=== PATIENT | male | born 2005 | race Caucasian/White ===

== ENCOUNTER 2024-03-28 11:14 | Outpatient (AMB) | payer OTHER, SELFPAY ==
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
[2024-03-28 11:30] VITALS: BP 135/83; PULSE 83; RESP 14; O2SAT 100; BMI 21.0
[2024-03-28 12:39] VITALS: BP 122/70
== END 2024-03-28 12:48 | disposition home or self-care (01) ==
LOC: HO.HMCFM 11:14
PROVIDERS: PCP Nurse Practitioner Family; Visit Provider Physician Assistant Medical
DX: R45.851 Suicidal ideations (principal); F43.10 Post-traumatic stress disorder, unspecified; F41.9 Anxiety disorder, unspecified; F32.A Depression, unspecified

== ENCOUNTER → 2024-03-28 11:14 | Outpatient (BNVA) | payer OTHER, SELFPAY | PROVIDERS: PCP Nurse Practitioner Family; Visit Provider Physician Assistant Medical | DX: F43.10 Post-traumatic stress disorder, unspecified (principal); F41.9 Anxiety disorder, unspecified; F32.A Depression, unspecified; R45.851 Suicidal ideations; Z71.89 Other specified counseling | CPT/HCPCS: 96127; 99202 ==

== ENCOUNTER 2024-04-02 08:23 | Outpatient (REF) | payer OTHER, SELFPAY ==
[2024-04-02 11:23] LABS: Mean Corpuscular HGB Conc 33.3 g/dl (31.0-36.0); Mean Corpuscular Hemoglobin 29.7 pg (27.0-33.0); Mean Corpuscular Volume 89.1 fL (80.0-98.0); Mean Platelet Volume 10.7 fL (9.4-12.4); Platelet Count 263 X10*3/uL (160-400); Red Blood Count 5.05 X10*6/uL (4.60-5.80); Red Cell Distribution Width 12.7 % (11.0-16.0); White Blood Count 8.5 X10*3/uL (4.8-10.8)
[2024-04-02 11:55] LABS: Alanine Aminotransferase 20 U/L (0-40); Albumin Level 4.7 g/dL (3.5-5.0); Alkaline Phosphatase 107 U/L (39-117); Anion Gap 13 (12-20); Aspartate Amino Transferase 23 U/L (5-37); Bilirubin Total 0.7 mg/dL (0.0-1.0); Blood Urea Nitrogen 11 mg/dL (9-16); Calcium 9.7 mg/dL (8.4-10.2); Carbon Dioxide 27 mmol/L (22-29); Chloride 105 mmol/L (96-108); Cholesterol 158 mg/dL (<200); Estimated Glomerular Filt Rate > 60; Glucose Random 90 mg/dL (60-115); HDL Cholesterol 39 mg/dL (>40); LDL Cholesterol Calculated 103 mg/dL (<100); Potassium 4.2 mmol/L (3.3-5.1); Sodium 141 mmol/L (135-145); Total Protein 8.2 g/dL (6.5-8.0); Triglycerides 81 mg/dL (<150)
[2024-04-02 12:03] LABS: HIV AB/AG Nonreactive (Nonreactive); HIV Num 1 0.06 S/CO (0.00-0.99); ~HepC Num1 0.28 S/CO (0.00-0.79); ~Hepatitis C Antibody Nonreactive (Nonreactive)
[2024-04-02 12:12] LABS: TSH reflex Free T4 2.04 uIU/mL (0.32-4.0)
[2024-04-02 12:22] LABS: Syphilis Screen Reactive (Nonreactive)
[2024-04-08 15:46] LABS: RPR Quantitative Non-Reactive (Nonreactive); T.Pallidum Particle Agg Test Reactive (Nonreactive)
== END 2024-04-02 08:24 | disposition home or self-care (01) ==
LOC: HO.WFDLDS 08:23
PROVIDERS: Visit Provider Physician Assistant Medical
DX: F41.9 Anxiety disorder, unspecified (principal); E78.5 Hyperlipidemia, unspecified; F32.A Depression, unspecified; Z13.6 Encounter for screening for cardiovascular disorders; Z11.3 Encounter for screening for infections with a predominantly sexual mode of transmission
CPT/HCPCS: 36415; 80053; 80061; 84443; 85027; 86592; 86780; 86803; 87389

== ENCOUNTER 2024-04-11 15:58 | Outpatient (AMB) | payer OTHER, SELFPAY ==
--- NOTE | 2024-04-11 15:54 | MHC.PC.OV ---
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 The patient has a working phone number again. I gave him the contact number for central scheduling. They were trying to reach him to set up appointments for Psychology and Psychiatry. We reviewed his lab results. They were satisfactory. Screening for STIs demonstrated reactive T pallidum antibody, nonreactive RPR and reactive T pallidum particle agg in keeping with prior syphilis infection treated in early 2023. Patient had no questions about his labs today. [facility] Medical History (Updated 04/11/24 @ 16:13 by NALLELY Rojo) History of syphilis Suicidal ideation PTSD (post-traumatic stress disorder) Screening for cardiovascular condition Vaso vagal episode ADHD Bipolar 1 disorder Anxiety and depression Surgical History (Updated 03/28/24 @ 11:29 by Gloria Eastman MA) No pertinent past surgical history Family History (Updated 03/28/24 @ 12:20 by NALLELY Rojo) Father Mental health disorder Hypertension Maternal Grandfather Hypertension Paternal Grandmother Diabetes Breast cancer Paternal Grandfather Diabetes Mother Hector's disease Social History (Updated 03/28/24 @ 11:26 by Gloria Eastman MA) Household Members: Family Both parents involved: Yes Caregiver staying overnight: No Housing: House Are you a primary customer care associate to a significant other at home: No Do you presently have visiting nurse or other home services: No 75 years or older and lives alone: No Alcohol intake: current Alcohol intake frequency: a few times a month Patient Tobacco Use Status: Current everyday Tobacco user Cigarettes Per Day: 1 e-Cigarette/Vaping Use: Currently Using Second Hand Smoke Exposure: No service: No Current occupational status: employed 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 Juan Mosher, Eunice Vences, Gregory Johnson and colleagues, with an educational anastasia from [employer]. Physical exam (Primary Care) Tobacco/Smoking Status: Tobacco use Status Tobacco use date assessed 03/28/24 04/11/24 15:55 Patient Tobacco Use Status Current everyday Tobacco 04/11/24 15:55 e-Cigarette/Vaping Use Currently Using 04/11/24 15:55 Thrive Assessment: Date of Thrive Assessment Date Thrive assessed 03/28/24 04/11/24 15:55 Telehealth Telehealth Telehealth Platform: Telephone Location of provider rendering services: practice address Location of patient: address on file Patient Identification confirmed using: Name, : Yes Telehealth method: voice only Patient verbally consented to treatment: Yes Patient verbally consented to billing insurance company: Yes Patient informed of any privacy concerns related to visit: Yes Minutes spent on Phone/Video with Pt.: 5 Coding Level of Care Code Tele Est Pt Level 2 (98942) Diagnoses History of syphilis Z86.19 Anxiety and depression F41.9; F32.A PTSD (post-traumatic stress disorder) F43.10 Suicidal ideation R45.851 Assessment & Plan Assessment & Plan (1) History of syphilis: Comment: treated at the beginning of 2023. RPR neg 03/2024 Code(s): Z86.19 - Personal history of other infectious and parasitic diseases Category: Medical (2) Anxiety and depression: Code(s): F41.9 - Anxiety disorder, unspecified; F32.A - Depression, unspecified Category: Medical (3) PTSD (post-traumatic stress disorder): Code(s): F43.10 - Post-traumatic stress disorder, unspecified Category: Medical (4) Suicidal ideation: Code(s): R45.851 - Suicidal ideations Category: Medical Plan Patient has a physical exam scheduled. He will contact central scheduling so that referrals for Psychology and Psychiatry can be completed.
== END 2024-04-11 17:08 | disposition home or self-care (01) ==
LOC: HO.HMCFM 15:58
PROVIDERS: PCP Physician Assistant Medical; Visit Provider Physician Assistant Medical
DX: F41.9 Anxiety disorder, unspecified (principal); Z86.19 Personal history of other infectious and parasitic diseases; R45.851 Suicidal ideations; F32.A Depression, unspecified; F43.10 Post-traumatic stress disorder, unspecified

== ENCOUNTER → 2024-04-11 15:58 | Outpatient (BNVA) | payer OTHER, SELFPAY | PROVIDERS: PCP Physician Assistant Medical; Visit Provider Physician Assistant Medical ==

== ENCOUNTER 2025-03-31 13:19 | Outpatient (REF) | payer SELFPAY ==
--- OUTSIDE RECORDS SUMMARY | 2025-03-31 15:26 | XMS_ITS | Clinical Summary ---
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 Refusal of human papilloma v irus (HPV) vaccination by caregiver 01/13/2021 Overview (01/13/2021): 01/09 Assessment & Plan (01/13/2021 11:53 AM EDT): Reviewed HPV with mom. Dicussed cancers and diseases that HPV9 vaccine can prevent. Strongly recommend vaccine. Declines today but aware that they can return to start at any time should she change her mind. Allergy to poison leonora 11/19/2016 Neurocardiogenic syncope 08/01/2016 Immunizations Immunization Administration Dates Next Due DTaP 11/17/2009, 6,2004,09/13,2004 Hep A, ped/adol 01/13/2021,05/10/2017 Hep B, ped/adol 02/08/2005,2004,2004 Hib (PRP-T) 09/20/2005, 5,2004,07/19 IPV 11/17/2009, 5,2004,07/19 Influenza, injectable, quadrivalent 12/21,04/04/2014,05/06/2013,04/24,05/03/2011,05/11/2010,04/09/2010 Influenza, injectable, quadr ivalent, preservative free 05/03/2020 MMR 11/17/2009,09/20/2005 Meningococcal Conj (Menactra) MCV4P 01/13/2021,0 01/20/2016 Pneumococcal Conjugate 06/20/2005,2004,2004,07/19 Tdap 01/08/2015 Varicella 11/17/2009,06/20/2005 Family History Medical History Relation Name Comments No Known Problems Brother No Known Problems Father Hypertension Maternal Grandfather No Known Problems Maternal Grandmother No Known Problems Mother Hypertension Paternal Grandfather Diabetes type II Paternal Grandmother No Known Problems Sister 1 No Known Problems Sister 2 Relation Name Status Comments Brother Alive Father Alive age: 42 Maternal Grandfather Maternal Grandmother Alive Mother Alive age: 39 Paternal Grandfather Alive Paternal Grandmother Alive Sister 1 Alive Sister 2 Alive Social History Tobacco Use Types Packs/Day Years Used Date Smoking Tobacco: Never Assessed Hunger/Food Answer Date Recorded In the last 12 months, did y ou or your family ever eat less than you felt you should because there wasn't enough money for food? No 01/13/2021 Stable Housing Answer Date Recorded Are you worried that in the next 2 months you may not have stable housing? No 01/13/2021 Transportation Concerns Answer Date Rec orded In the last 12 months, have you or your family ever had to go without healthcare because you didn't have a way to get there? No 01/13/2021 Hazards in Home Answer Date Recorded Think about the place you li ve. Do you have problems with any of the following? Pests (mice or roaches), mold, no/not working smoke detectors, water leaks, no window guards. No 2020 Financing Utilities Answer Date Recorde d In the last 12 months, has t he electric, gas, oil, or water company threatened to shut off your services in your home? No 01/13/2021 Safety at Home Answer Date Recorded Are you or your family worried about feeling saf e in your home? No 01/13/2021 Outside Support Answer Date Recorded Do you feel that you need mo re support from other people or programs to help you care for yourself or your family? No 01/13/2021 Understanding Health Concerns Answer Da te Recorded Do you need help understandi ng your or your child's healthcare needs (diagnosis, medications, plan, etc.)? No 01/13/2021 Financing Health Concerns Answer Date R ecorded In the last 12 months, was t here a time when your child needed to see a doctor or get medications or supplies but could not because of cost? No 01/13/2021 Missing School or Work Answer Date Markos rded Did you or your child miss s chool or work because of a health problem that could have been avoided? No 01/13/2021 Sex and Gender Information Value Date Recorded Sex Assigned at Not on file Legal Sex Male 6:13 PM EDT Gender Identity Not on file Sexual Orientation Straight 01/13/2021 11 :37 AM EDT Last Filed Vital Signs Vital Sign Reading Time Taken Comments Blood Pressure 114/68 01/13/2021 11:11 AM EDT Pulse - - Temperature 36.7 C (98 F) 07/03/2020 1:12 PM EST Respiratory Rate - - Oxygen Saturation - - Inhaled Oxygen Concentration - - Weight 72.7 kg (160 lb 3.2 oz) 01/13/2021 11:11 AM EDT Height 186.7 cm (6' 1.5 ) 01/13/2021 11:11 AM ED T Body Mass Index 20.85 01/13/2021 11:11 AM EDT Plan of Treatment Health Maintenance Due Date Last Done Comments HPV Vaccines (1 - Male 3-dos e series) 2019 Men B Vaccine (1 of 2 - Standard) 2020 Influenza Vaccines (#1) 2024 05/03/20, 01/08/2015, 04/04/2014, Additional history exists DTaP,Tdap,and Td Vaccines (7 - Td or Tdap) 01/08/2025 01/08/2015, 11/17/2009, 01/20/2006, Additional history exists COVID-19 Vaccine (3 - 2024-2 6 season) 2025 10/15/2020, 09/24/2020 Hepatitis B Vaccines Completed 02/08/2005, 2004, 2004 Pneumococcal Vaccine Completed 06/20/2005, 2004, 2004, Additional history exists HIB Vaccines Completed 09/20/2005, 10/21, 2004, Additional history exists IPV Vaccines Completed 11/17/2009, 10/21, 2004, Additional history exists MMR Vaccines Completed 11/17/2009, 09/20/2005 Varicella Vaccines Completed 11/17/2009, 06/20/2005 Hepatitis A Vaccines Completed 01/13/2021, 05/10/20 17 Meningococcal Vaccine Completed 01/13/2021, 016 Insurance [facility] NON PCC
--- OUTSIDE RECORDS SUMMARY | 2025-03-31 15:26 | XMS_ITS | Clinical Summary ---
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 Role Phone Unavailable Primary Care Provider Unavailabl e Social History Tobacco Use Types Packs/Day Years Used Date Smoking Tobacco: Never Assessed Sex and Gender Information Value Date Recorded Sex Assigned at Not on file Legal Sex Male 9:04 PM EST Gender Identity Not on file Sexual Orientation Not on file Plan of Treatment Health Maintenance Due Date Last Done Comments Varicella Vaccines (1 of 2 - 13+ 2-dose series) 2017 HPV Vaccines (1 - Male 3-dos e series) 2019 Meningococcal B Vaccine (1 o f 2 - Standard) 2020 DTaP,Tdap,and Td Vaccines (1 - Tdap) 2023 Hepatitis B Vaccines (1 of 3 - 19+ 3-dose series) 2023 Annual Well Child Visit (3-2 1 years old) 06/16/2023 HIV Screening 06/16/2023 Hepatitis C Screening 06/16/2023 Social Influencers of Health Screening 06/16/2023 Depression Screening 05/22/2024 COVID-19 Vaccine (1 - 2023-2 5 season) 2025 Influenza Vaccine (#1) 2025 RSV Immunization Adult Patie nts (1 - 1-dose 75+ series) 2079 HIB Vaccines Aged Out No longer eligi ble based on patient's age to complete this topic Hepatitis A Vaccines Aged Out No long er eligible based on patient's age to complete this topic IPV Vaccines Aged Out No longer eligi ble based on patient's age to complete this topic MMR Vaccines Aged Out No longer eligi ble based on patient's age to complete this topic Meningococcal ACWY Vaccine Aged Out N o longer eligible based on patient's age to complete this topic Pneumococcal Vaccine: Pediat rics (0 to 5 Years) and At-Risk Patients (6 to 49 Years) Aged Out No longer eligible b ased on patient's age to complete this topic RSV Immunization Patients Un isela 20 months Aged Out No longer eligible b ased on patient's age to complete this topic
--- OUTSIDE RECORDS SUMMARY | 2025-03-31 15:26 | XMS_ITS | Encounter Summary ---
Author Organization [facility] Address [address] [place] [id number] Phone Care Team Providers Care Archives Director Name Role Phone Juan Milian MD Primary Care Provider [phone] Encounter Details Date Type Department Care Team (Late st Contact Info) Description 10/08/2017 Conversion Encounter [facility] [address] [place] [address] Judit Butler MD [address] [place] [address] Social History Tobacco Use Types Packs/Day Years Used Date Smoking Tobacco: Never Assessed Sex and Gender Information Value Date Recorded Sex Assigned at Not on file Legal Sex Male 6:13 PM EDT Gender Identity Not on file Sexual Orientation Straight 01/13/2021 11 :37 AM EDT documented as of this encounter Plan of Treatment Not on file documented as of this encounter Visit Diagnoses Not on filedocumented in this encounter Care Teams Archives Director Relationship Specialty Start Date End Date Juan Milian MD [address] [place] [address] PCP - General Pediatrics 07/03/20 04/22/24 documented as of this encounter
[2025-04-01 06:20] LABS: Syphilis Screen Reactive (Nonreactive)
[2025-04-01 06:51] LABS: HIV Num 1 0.07 S/CO (0.00-0.99); ~HepC Num1 0.22 S/CO (0.00-0.79); ~Hepatitis C Antibody Nonreactive (Nonreactive)
[2025-04-01 13:12] LABS: CT PCR Urine NOT DETECTED (Not Detect.); NG PCR Urine NOT DETECTED (Not Detect.)
[2025-04-09 13:02] LABS: T.Pallidum Particle Agg Test Reactive (Nonreactive)
== END 2025-03-31 13:20 | disposition home or self-care (01) ==
LOC: HO.WFDLDS 13:19
PROVIDERS: Visit Provider Physician Assistant Medical
DX: Z11.4 Encounter for screening for human immunodeficiency virus [HIV] (principal); Z20.2 Contact with and (suspected) exposure to infections with a predominantly sexual mode of transmission; Z20.6 Contact with and (suspected) exposure to human immunodeficiency virus [HIV]; Z11.59 Encounter for screening for other viral diseases
CPT/HCPCS: 86592; 86780; 86803; 87389; 87491; 87591